=== PATIENT | female | born 1970 | race African-American/Black ===

== ENCOUNTER 2024-07-30 11:27 | Emergency (ER) | payer MEDICARE, MEDICAID ==
[~2024-07-30] VITALS: Ht 167.6 cm; Wt 80.0 kg
[~2024-07-30 11:27] MED LIST: AMLO10TA80 PO; ATEN100T PO
[2024-07-30 11:28] VITALS: BP 130/82; PULSE 99; RESP 18; TEMP 36.9; O2SAT 100
== END 2024-07-30 13:37 | disposition left against medical advice (07) ==
LOC: ER 11:27
DX: R07.89 Other chest pain (principal); F41.9 Anxiety disorder, unspecified; I10 Essential (primary) hypertension; E11.9 Type 2 diabetes mellitus without complications; F32.A Depression, unspecified; K50.90 Crohn's disease, unspecified, without complications; Z79.899 Other long term (current) drug therapy; Z88.5 Allergy status to narcotic agent
CPT/HCPCS: 99283